=== PATIENT | female | born 1960 | race Caucasian/White ===

== ENCOUNTER → 2017-03-07 | Outpatient (CLI) | payer BC ==
--- NOTE | 2017-03-07 16:21 | MAMMOGRAPHY REPORT ---
BILATERAL DIGITAL SCREENING MAMMOGRAM TOMOSYNTHESIS WITH CAD: 03/07/2017 CLINICAL HISTORY: Routine screening. Patient has no complaints. TECHNIQUE: Breast tomosynthesis in addition to standard 2D mammography was performed. Current study was also evaluated with a Computer Aided Detection (CAD) system. COMPARISON: Comparison is made to exams dated: 02/16/2016 mammogram, 02/10/2015 mammogram, 11/23/2012 ultrasound, 11/18/2012 mammogram, and 11/06/2011 mammogram - [facility]. BREAST COMPOSITION: The tissue of both breasts is heterogeneously dense, which may obscure small ma sses. FINDINGS: No suspicious masses, calcifications, or areas of architectural distortion are noted in e ither breast. There has been no significant interval change compared to prior exams. IMPRESSION: ACR BI-RADS CATEGORY 1: NEGATIVE There is no mammographic evidence of malignancy. A 1 year screening mammogram is recommended. The p atient will receive written notification of the results. Approximately 10% of breast cancers are not detected with mammography. A negative mammographic repor t should not delay biopsy if a clinically suggestive mass is present. Stefanie You M.D. /:03/07/2017 15:49:41 Kindergarten Instructional Assistant: Guerita ZHANG(Erica)(M), [facility] letter sent: Normal 1/2 BI-RADS Code: ACR BI-RADS Category 1: Negative
== END | disposition home or self-care (01) ==
LOC: C.MAMM 15:17
PROVIDERS: ATTEND Nurse Practitioner Family
DX: Z12.31 Encounter for screening mammogram for malignant neoplasm of breast (principal)

== ENCOUNTER → 2017-05-09 | Outpatient (CLI) | payer BC ==
--- NOTE | 2017-05-09 15:50 | DIAGNOSTIC IMAGING REPORT ---
CHEST 2 VIEWS ROUTINE CLINICAL HISTORY: COUGH, ACUTE BRONCHITIS COMPARISON STUDY: 07/29/2014 FINDINGS: The cardiac and mediastinal contours remain stable. There is persistent interstitial thickening with a basilar predominance. This remains similar to the preceding study. There is no acute lobar consolidation. There are no pleural effusions.[ IMPRESSION: Stable interstitial thickening with a basilar predominance. No evidence of acute focal parenchymal consolidation Electronically signed by: Marcial Govea M.D. 05/09/2017 3:48 PM Dictated Date/Time: 05/09/2017 3:48 PM
== END | disposition home or self-care (01) ==
LOC: C.RAD1850 15:37
PROVIDERS: ATTEND Nurse Practitioner Family
DX: R05 Cough (principal); J20.9 Acute bronchitis, unspecified

== ENCOUNTER → 2017-05-13 | Outpatient (CLI) | payer BC | END | disposition home or self-care (01) | LOC: C.PAPS 13:46 | PROVIDERS: ATTEND Obstetrics & Gynecology | DX: Z01.419 Encounter for gynecological examination (general) (routine) without abnormal findings (principal) ==

== ENCOUNTER → 2017-08-20 | Outpatient (CLI) | payer BC ==
[~2017-08-20] MED LIST: OPTIRAY 320 IV PRN
--- NOTE | 2017-08-20 14:39 | DIAGNOSTIC IMAGING REPORT ---
SINUSES-MAXILLOFACIAL W/O HISTORY: 56 years-old Female J32.9 Chronic [id number] chronic sinusitis. COMPARISON: None available. TECHNIQUE: Multiple axial CT images of the maxillofacial bones were obtained without IV contrast. A dose lowering technique was used consistent with the principals of ANGELA. FINDINGS: Mastoid air cells and middle ear cavities are generally clear. Cerumen is noted within the bilateral external auditory canals. Severe left and moderate severe right mucosal thickening involves the maxillary sinuses with mucoperiosteal thickening of the maxillary snyder. There are Central bubbly secretions present. Severe ethmoid sinus opacification is present bilaterally with additional bubbly secretions. Mucoperiosteal thickening with severe opacification involves the bilateral sphenoid sinuses which are only partially aerated, left greater than right. The frontal sinuses are nearly completely opacified with scattered foci of aeration. The right sphenoethmoidal recess is opacified. There is narrowing with patency of the left sphenoethmoidal recess. Bilateral frontal ethmoidal recesses and maxillary ostiomeatal units are opacified. No definite sinonasal polyp identified. No facial bone fracture or dislocation identified. There is only minimal leftward spurring of the nasal septum. The imaged intracranial structures demonstrate no acute abnormality. Moderate degenerative changes involve the bilateral temporal mandibular joints. Soft tissues and orbits are unremarkable. IMPRESSION: 1. Severe chronic pansinusitis as above with mucosal opacification of the bilateral maxillary ostiomeatal units and sinus outflow tracts as above. 2. No definite sinonasal polyps are identified. 3. Moderate degenerative changes of the bilateral temporal mandibular joints. The above report was generated using voice recognition software. It may contain grammatical, syntax or spelling errors. Electronically signed by: Mendez Burks M.D. 08/20/2017 2:38 PM Dictated Date/Time: 08/20/2017 2:25 PM
--- NOTE | 2017-08-20 14:51 | DIAGNOSTIC IMAGING REPORT ---
(CHEST) THORAX WITH CLINICAL HISTORY: 56 years-old Female presenting with J47.9 [id number] Chronic [id number]. TECHNIQUE: Multidetector CT imaging of the chest was performed after the administration of intravenous contrast. IV contrast: 94 mL of Optiray 320. A dose lowering technique was used consistent with the principles of ALARA (as low as reasonably achievable). COMPARISON: 04/01/2008. CT DOSE (mGy.cm): The estimated cumulative dose is . FINDINGS: Rn Endocrinology topogram: Unremarkable. On soft tissue windows, normal thyroid and thoracic inlet. Few subcentimeter mediastinal lymph nodes, possibly reactive. No hilar lymphadenopathy. Normal aorta. Normal heart size. No pericardial or pleural effusion. Small hiatal hernia. On lung windows, emphysematous changes at the lung bases more prominent on the current exam. Interval development of tree-in-bud opacities in the bilateral lower lobes and right middle lobe. Debris noted within subsegmental bronchi in the bilateral lower lobes as well as the right middle lobe and inferior portions of the lingula. Scattered tree-in-bud opacities also noted in the dependent portions of the upper lobes. Mild bronchiectasis suggested most pronounced in the anterior segment of the right upper lobe. The lung apices are largely spared. On bone windows, normal osseous structures. IMPRESSION: 1. Interval increase in diffuse tree-in-bud opacities and bronchiectasis predominantly affecting the mid and lower lungs. This primarily is most concerning for infectious bronchiolitis among other differential considerations. Diffuse debris within subsegmental bronchi in a similar distribution could represent endobronchial spread of infection. Included in potential etiologies are mycobacterial infections. The mid and lower lung distribution with the absence of lymphadenopathy is much less suggestive of sarcoidosis and hypersensitivity pneumonitis. 2. Lower lobe predominant emphysematous changes. This can be seen in the setting of alpha-1 antitrypsin deficiency, Ritalin lung, and postviral infection. Electronically signed by: Bud Simmons M.D. 08/20/2017 2:49 PM Dictated Date/Time: 08/20/2017 2:34 PM
== END | disposition home or self-care (01) ==
LOC: C.CTS 13:57
PROVIDERS: ATTEND Internal Medicine Pulmonary Disease
DX: J32.9 Chronic sinusitis, unspecified (principal); J47.9 Bronchiectasis, uncomplicated; R05 Cough

== ENCOUNTER → 2017-09-15 | Outpatient (CLI) | payer BC | END | disposition home or self-care (01) | LOC: C.LABSPEC 14:32 | PROVIDERS: ATTEND Internal Medicine Pulmonary Disease | DX: J47.9 Bronchiectasis, uncomplicated (principal); J32.4 Chronic pansinusitis; R05 Cough ==